=== PATIENT | male | born 1960 | race Hispanic/Latino ===

== ENCOUNTER 2019-01-24 12:12 | Outpatient (CLI) | payer BC ==
--- NOTE | 2019-01-24 13:08 | RAD ---
FRONTAL CHEST: 01/24/2019 PROVIDED CLINICAL HISTORY: Neck and shoulder pain. FINDINGS: The cardiac and mediastinal silhouette is within normal limits. The lungs appear clear. No pleural fl uid or pneumothorax apparent. IMPRESSION: No evidence for an acute cardiopulmonary process. POS: OFF
--- NOTE | 2019-01-24 13:12 | RAD ---
LEFT SHOULDER RADIOGRAPHS THREE VIEWS: 01/24/2019 PROVIDED CLINICAL HISTORY: Left shoulder pain. FINDINGS: No evidence for fracture. The subacromial space is maintained. The glenohumeral relationship appears normal. Mild acromioclavicular joint degenerative change. IMPRESSION: Mild acromioclavicular joint degenerative change. POS: OFF
--- NOTE | 2019-01-24 13:15 | RAD ---
CERVICAL SPINE RADIOGRAPHS FOUR VIEWS: 01/24/2019 PROVIDED CLINICAL HISTORY: Cervicalgia. FINDINGS: Cervical alignment appears normal. Vertebral body heights appear preserved. Disk space narrowing and endplate degenerative changes are noted at C5-C6 and C6-C7. No prevertebral soft tissue swelling appa rent. The visualized lung apices appear clear. No evidence for fracture or other acute osseous abnorm ality. IMPRESSION: Cervical degenerative change. POS: OFF
== END 2019-01-24 12:13 | disposition home or self-care (01) ==
LOC: BICRAD 12:12
PROVIDERS: ATTEND Family Medicine
DX: M54.2 Cervicalgia (principal); M25.512 Pain in left shoulder; R91.8 Other nonspecific abnormal finding of lung field; S43.315A Dislocation of left scapula, initial encounter; M19.012 Primary osteoarthritis, left shoulder; M47.812 Spondylosis without myelopathy or radiculopathy, cervical region
CPT/HCPCS: 71045; 72040